=== PATIENT | female | born 1970 | race Hispanic/Latino ===

== ENCOUNTER 2024-11-25 08:17 | Outpatient (CLI) | payer BC | END 2024-11-25 08:18 | disposition home or self-care (01) | LOC: CSHSLEEP 08:17 | PROVIDERS: ATTEND Student in an Organized Health Care Education/Training Program | DX: G47.33 Obstructive sleep apnea (adult) (pediatric) (principal); R53.83 Other fatigue; R09.89 Other specified symptoms and signs involving the circulatory and respiratory systems; G25.89 Other specified extrapyramidal and movement disorders; R51.9 Headache, unspecified; F32.A Depression, unspecified; F41.9 Anxiety disorder, unspecified; E11.9 Type 2 diabetes mellitus without complications; E66.9 Obesity, unspecified; Z68.28 Body mass index [BMI] 28.0-28.9, adult; R06.83 Snoring; G47.10 Hypersomnia, unspecified | CPT/HCPCS: 95800 ==